=== PATIENT | male | born 1955 | race Caucasian/White ===

== ENCOUNTER 2021-10-23 14:43 | Outpatient (CLI) | payer BC ==
[2021-10-23 15:35] LABS: #Eosinphils 0.2 10x3/uL (0.0-0.5); #Monocytes 0.9 10x3/uL (0.0-1.1); #Neutrophils 3.4 10x3/uL (1.5-8.4); %Basophils 0.5 % (0.0-2.0); %Eosinophils 2.5 % (0.0-6.0); %Lymphocytes 29.6 % (18.0-47.0); %Monocytes 13.6 % (0.0-10.0); %Neutrophils 53.3 % (40.0-75.0); Hemoglobin 13.9 g/dL (13.5-17.5); Mean Corpuscular HGB CONC 33.3 g/dL (32.0-36.0); Mean Corpuscular Hemoglobin 28.1 pg (27.0-33.0); Mean Corpuscular Volume 84.4 fl (81.2-95.1); Mean Platelet Volume 11.9 fl (7.4-10.4); Platelet Count 176 10x3/uL (150-450); RBC Distribution Width 13.2 % (11.5-14.5); Red Blood Cell (RBC) Count 4.95 10x6/uL (4.32-5.72); White Blood Cell (WBC) Count 6.4 10x3/uL (3.5-10.5)
[2021-10-23 15:43] LABS: Prothrombin Time 10.4 sec (9.5-12.1)
[2021-10-23 15:46] LABS: Anion Gap 17 mmol/L (10-20); BUN (Urea Nitrogen) 16 mg/dL (8.4-25.7); Calc. Creatinine Clearance 0 mL/min (70-130); Calcium 9.2 mg/dL (7.8-10.44); Carbon Dioxide 24 mmol/L (23-31); Chloride 104 mmol/L (98-107); Estimated GFR 76; Glucose 99 mg/dL (80-115); Sodium 141 mmol/L (136-145)
== END 2021-10-23 14:44 | disposition home or self-care (01) ==
LOC: LABBT 14:43
PROVIDERS: ATTEND Orthopaedic Surgery
DX: Z01.818 Encounter for other preprocedural examination (principal); M17.11 Unilateral primary osteoarthritis, right knee; Z20.822 Contact with and (suspected) exposure to COVID-19
CPT/HCPCS: 80048; 85025; 85610; 87081; 87811; 93005; 93010

== ENCOUNTER 2021-10-28 05:33 | Observation (INO) | payer BC ==
[2021-10-23 10:11] VITALS: BMI 28.5
[2021-10-28] MEDS ORDERED: Sodium Chloride 0.9% 100 ML ONE ×2 (06:12→06:58)
[2021-10-28] MEDS ORDERED: Vancomycin (BATCH) 1.5 GRAM/300 ML BAG ONE (06:12)
[2021-10-28] MEDS ORDERED: Tranexamic Acid 1,000 MG/10 ML VIAL ONE (06:12)
[2021-10-28] MEDS ORDERED: fentaNYL Citrate/PF 100 MCG/2 ML SYRINGE ONE ×2 (06:22→07:38)
[2021-10-28] MEDS ORDERED: Bupivacaine PF 0.5% 30 ML VIAL ONE (06:26)
[2021-10-28] MEDS ORDERED: Fentanyl 100 MCG/2 ML VIAL ONE ×4 (06:40→10:13)
[2021-10-28] MEDS ORDERED: Midazolam HCl 2 mg/2 ml Vial ONE (06:40)
[2021-10-28] MEDS ORDERED: Lidocaine 1% (PF) 30 ML VIAL ONE (06:40)
[2021-10-28] MEDS ORDERED: Fentanyl 100 MCG/2 ML VIAL SLOW IVP PRN ×2 (06:58)
[2021-10-28] MEDS ORDERED: CEFAZOLIN 2 GM VIAL ONE (06:58)
[2021-10-28] MEDS ORDERED: Acetaminophen 325 MG TAB PO PRN (06:58)
[2021-10-28] MEDS ORDERED: Zolpidem Tartrate 5 MG TAB PO PRN ×2 (06:58→08:00)
[2021-10-28] MEDS ORDERED: Promethazine HCl 25 MG/ML VIAL IM PRN ×2 (06:58→08:00)
[2021-10-28] MEDS ORDERED: HYDROcodone/Acetaminophen 10/325 mg Tablet PO PRN ×3 (06:58→08:00)
[2021-10-28] MEDS ORDERED: Ondansetron PF 4 MG/2 ML Vial IVP PRN ×2 (06:58→08:00)
[2021-10-28] MEDS ORDERED: diphenhydrAMINE 25 MG CAP PO PRN (06:58)
[2021-10-28] MEDS ORDERED: ceFAZolin 2 GM/Dextrose 50 ML 2 GM in Premix Bag 1 BAG IVPB SCH (07:00)
[2021-10-28] MEDS ORDERED: Bupivacaine HCl 0.5%/Epinephrine 1:200,000/PF 30 ml Vial ONE (07:08)
[2021-10-28] MEDS ORDERED: Ondansetron PF 4 MG/2 ML Vial ONE (07:08)
[2021-10-28] MEDS ORDERED: PROPOFOL 200 MG/20 ML VIAL ONE (07:08)
[2021-10-28] MEDS ORDERED: Lidocaine 1% PF 5 ML VIAL ONE (07:08)
[2021-10-28] MEDS ORDERED: Glycopyrrolate 0.2 MG/ML 5 ML SYRINGE ONE (07:08)
[2021-10-28] MEDS ORDERED: Ketorolac Tromethamine 30 MG/ML VIAL ONE (07:08)
[2021-10-28] MEDS ORDERED: Dexamethasone 20 MG/5 ML VIAL ONE (07:08)
[2021-10-28] MEDS ORDERED: Fentanyl 100 MCG/2 ML VIAL IV PRN (07:57)
[2021-10-28] MEDS ORDERED: traMADol HCl 50 MG TAB PO PRN ×2 (08:00)
[2021-10-28] MEDS ORDERED: Ropivacaine 0.2% 550 ML 550 ML NERVE BLCK SCH (08:00)
[2021-10-28] MEDS ORDERED: Meperidine HCl/PF 25 MG/ML VIAL ONE (08:49)
[2021-10-28] MEDS ORDERED: Labetalol HCl 100 MG/20 ML VIAL ONE (08:49)
[2021-10-28] MEDS ORDERED: Non-Formulary Medication 1 EACH PO PRN (09:13)
[2021-10-28] MEDS ORDERED: Promethazine HCl 25 MG/ML VIAL IM/IV PRN (09:15)
[2021-10-28] MEDS ORDERED: Ondansetron HCl/PF 4 MG/2 ML Vial IVP PRN (09:15)
[2021-10-28] MEDS ORDERED: Meperidine HCl/PF 25 MG/ML VIAL IV PRN (09:15)
[2021-10-28] MEDS ORDERED: hydrALAZINE 20 MG/ML VIAL ONE (09:25)
[2021-10-28] MEDS: Ferrous Gluconate 324 MG TAB PO SCH ×2 (11:28→21:33)
[2021-10-28] MEDS: Senokot S 8.6-50 MG TAB PO SCH ×2 (11:29→21:33)
[2021-10-28] MEDS: Multivitamin W/ Minerals 1 TAB PO SCH (11:29)
[2021-10-28] MEDS: Aspirin 81 mg Enteric Coated Tablet PO SCH ×2 (11:30→21:34)
[2021-10-28] MEDS: Ketorolac Tromethamine 30 MG/ML VIAL IVP SCH ×3 (11:38→23:17)
[2021-10-28] MEDS: CeleCOXIB 100 MG CAP PO SCH ×2 (11:38→21:34)
[2021-10-28] MEDS: Sodium Chloride 0.9% 1,000 ML IV SCH ×2 (11:38→18:15)
[2021-10-28] MEDS: CEFAZOLIN 2 GM in Sodium Chloride 0.9% 100 ML IVPB SCH ×2 (13:18→21:35)
[2021-10-28] MEDS ORDERED: Ketorolac Tromethamine 30 MG/ML VIAL IVP SCH (14:00)
[2021-10-28] MEDS: HYDROcodone/Acetaminophen 10/325 mg Tablet PO PRN ×2 (18:20→23:16)
[2021-10-29] MEDS: Sodium Chloride 0.9% 1,000 ML IV SCH (04:22)
[2021-10-29] MEDS: HYDROcodone/Acetaminophen 10/325 mg Tablet PO PRN ×3 (05:35→12:18)
[2021-10-29] MEDS: Ketorolac Tromethamine 30 MG/ML VIAL IVP SCH ×2 (05:36→11:33)
[2021-10-29 06:40] LABS: Hemoglobin 11.5 g/dL (14.0-18.0); Mean Corpuscular HGB CONC 33.1 g/dL (32.0-36.0); Mean Corpuscular Hemoglobin 29.9 pg (27.0-31.0); Mean Corpuscular Volume 90.2 fL (78.0-98.0); Mean Platelet Volume 9.7 fL (7.4-10.4); Platelet Count 144 thou/uL (130-400); RBC Distribution Width 12.5 % (11.5-14.5); Red Blood Cell (RBC) Count 3.85 mill/uL (4.70-6.10); White Blood Cell (WBC) Count 11.9 thou/uL (4.8-10.8)
[2021-10-29] MEDS: CeleCOXIB 100 MG CAP PO SCH (08:48)
[2021-10-29] MEDS: Ferrous Gluconate 324 MG TAB PO SCH (09:11)
[2021-10-29] MEDS: Senokot S 8.6-50 MG TAB PO SCH (09:11)
[2021-10-29] MEDS: Multivitamin W/ Minerals 1 TAB PO SCH (09:11)
[2021-10-29] MEDS: Aspirin 81 mg Enteric Coated Tablet PO SCH (09:11)
[2021-10-29 11:40] VITALS: BP 148/81; TEMP 98
== END 2021-10-29 12:30 | disposition home or self-care (01) ==
LOC: SDC 05:33 → SURG B 11:12
PROVIDERS: ADMIT Orthopaedic Surgery; ATTEND Orthopaedic Surgery
PROC: 0SRC0J9 Replacement of Right Knee Joint with Synthetic Substitute, Cemented, Open Approach (ICD-10-PCS; principal; 2021-10-28)
PROC: 3E0T3BZ Introduction of Anesthetic Agent into Peripheral Nerves and Plexi, Percutaneous Approach (ICD-10-PCS; 2021-10-28)
DX: M17.11 Unilateral primary osteoarthritis, right knee (principal); I10 Essential (primary) hypertension; F17.200 Nicotine dependence, unspecified, uncomplicated; Z79.899 Other long term (current) drug therapy
CPT/HCPCS: 36415; 85027; 96374; 96376; A4306; C1713; C1776; G0378; J0360; J0690; J1100; J1885; J2001; J2175; J2250; J2405; J2704; J2795; J3010; J3370; J3490; J7050; S0020

== ENCOUNTER 2022-01-06 08:23 | Outpatient (CLI) | payer MEDICARE | END 2022-01-06 08:24 | disposition home or self-care (01) | LOC: RAD-FRANK 08:23 | PROVIDERS: ATTEND Nurse Practitioner Family | DX: R07.89 Other chest pain (principal) | CPT/HCPCS: 71046 ==

== ENCOUNTER 2023-05-12 14:45 | Outpatient (CLI) | payer MEDICARE | END 2023-05-12 14:46 | disposition home or self-care (01) | LOC: SCSMRI 14:45 | PROVIDERS: ATTEND Neurological Surgery | DX: I61.3 Nontraumatic intracerebral hemorrhage in brain stem (principal); G93.89 Other specified disorders of brain | CPT/HCPCS: 70553; 82565 ==